=== PATIENT | female | born 1950 | race Caucasian/White ===

== ENCOUNTER 2017-10-13 06:55 | Day surgery (SDC) | payer OTHER, BC ==
[2017-10-13] MEDS ORDERED: PROPOFOL 20 ML ONE ×3 (08:02)
[2017-10-13] MEDS ORDERED: LIDOCAINE HCL 2% (20ML MULTI-DOSE VIAL) NR ONE (08:02)
[2017-10-13 08:45] VITALS: TEMP 97.4
[2017-10-13] MEDS ORDERED: GLYCOPYRROLATE 0.2 MG/1 ML VIAL ONE (08:53)
[2017-10-13] MEDS ORDERED: METOCLOPRAMIDE HCL INJECTION 10 MG/2 ML VIAL ONE (08:53)
[2017-10-13 09:32] VITALS: BP 118/58; PULSE 62
--- NOTE | 2017-10-16 16:09 | PATH ---
Surgical Pathology Report Patient Name: TERESA PINTO [facility]. Rec. #: [id number] /Age/Gender: 1950 (Age: 67) / F Account: [id number] Location: U-ENDOSCOPY Taken: 10/13/2017 Received: 10/13/2017 Reported: 10/16/2017 Physicians: Josselyn Jiménez M.D. Specimen(s) Received A: BX RECTUM POLYP B: BX CECAL POLYP C: BX RIGHT COLON POLYP Clinical History Preoperative diagnosis: Polyp surveillance Postoperative diagnosis: Colon polyps (rectum, cecum, right colon Final Diagnosis A. RECTUM, POLYP, POLYPECTOMY: HYPERPLASTIC POLYP. B. RECTUM, POLYP, POLYPECTOMY: POLYPOID FRAGMENT OF COLONIC MUCOSA WITHOUT SIGNIFICANT PATHOLOGIC FINDINGS. C. COLON, RIGHT, POLYP, POLYPECTOMY: POLYPOID FRAGMENT OF COLONIC MUCOSA WITH PROMINENT LYMPHOID AGGREGATE AND FOCAL SUPERFICIAL HYPERPLASTIC FEATURES. Electronically Signed Tiffany Lopez M.D. Gross Description A. Received in formalin, labeled "biopsy polyp rectum" are 2 howell, irregular portions of soft tissue measuring 0.2 and 0.3 cm. in greatest dimension. The specimens are submitted in toto in one cassette. B. Received in formalin, labeled "biopsy rectal polyp" is a howell, irregular portion of soft tissue measuring 0.2 cm. in greatest dimension. The specimen is submitted in toto in one cassette. C. Received in formalin, labeled "biopsy right colon polyp" are 4 howell, irregular portions of soft tissue ranging from 0.1-0.2 cm. in greatest dimension. The specimens are submitted in toto in one cassette. 10/13/201710/13/2017
== END 2017-10-13 09:33 | disposition home or self-care (01) ==
LOC: JASU-ENDO 06:55
PROVIDERS: ATTEND Internal Medicine Gastroenterology
PROC: 0DBP8ZX Excision of Rectum, Via Natural or Artificial Opening Endoscopic, Diagnostic (ICD-10-PCS; 2017-10-13)
PROC: 0DBH8ZX Excision of Cecum, Via Natural or Artificial Opening Endoscopic, Diagnostic (ICD-10-PCS; 2017-10-13)
PROC: 0DBK8ZX Excision of Ascending Colon, Via Natural or Artificial Opening Endoscopic, Diagnostic (ICD-10-PCS; principal; 2017-10-13 08:00)
DX: Z86.010 Personal history of colon polyps (principal); K62.1 Rectal polyp; D12.2 Benign neoplasm of ascending colon; D12.0 Benign neoplasm of cecum; K64.8 Other hemorrhoids
CPT/HCPCS: 88305-TC